=== PATIENT | female | born 1980 | race Caucasian/White ===

== ENCOUNTER 2018-01-10 09:40 | Emergency (ER) | payer BC ==
[2018-01-10 10:45] LABS: BASOPHIL % 0.2 % (0.0-0.4); Basophil (Absolute #) 0.02 (0-0.4); Eosinophil % 0.2 % (0.00-5.0); Eosinophil (Absolute #) 0.02 (0-0.5); Granulocyte Absolute (ANC) 8.14 (1.4-6.9); Granulocytes % 76.7 % (36.0-66.0); Hematocrit 39.2 % (35-47); Hemoglobin 13.7 gm/dl (12.0-16.0); Lymphocyte (Absolute #) 1.64 (1.0-4.6); Lymphocytes % 15.5 % (24.0-44.0); Mean Cell Volume 92.9 fl (78-100); Mean Corpuscular Hemoglobin 32.5 pg (26-32); Mean Corpuscular Hgb Concent. 34.9 g/dl (32-36); Monocyte (Absolute #) 0.79 (0.0-1.3); Monocytes % 7.4 % (0.0-12.0); Platelet Count 239 K/mm3 (150-450); Red Blood Count 4.22 M/mm3 (4.1-5.4); Red Cell Distribution Width 13.5 % (11.5-14.0); White Blood Count 10.6 K/mm3 (4.0-10.5)
[2018-01-10 10:50] LABS: Appearance CLEAR (CLEAR); Bilirubin NEGATIVE (NEGATIVE); Blood 250 Ery/ul (0-5); Glucose NEGATIVE (NEGATIVE); Ketones NEGATIVE (NEGATIVE); Leukocyte Esterase 1+ (NEGATIVE); Nitrite NEGATIVE (NEGATIVE); Protein,Urine Dip NEGATIVE (Negative); Urobilinogen NORMAL mg/dL (0-1)
[2018-01-10 10:53] LABS: Bacteria FEW /HPF (NEGATIVE); Epithelial Cells FEW /HPF (FEW); WBC 0-2 /HPF (0-5)
[2018-01-10 11:07] LABS: Amphetamine,Urine NEGATIVE (NEGATIVE); Barbiturate,Urine NEGATIVE (NEGATIVE); Benzodiazepine,Urine NEGATIVE (NEGATIVE); Cocaine,Urine NEGATIVE (NEGATIVE); Methadone,Urine NEGATIVE (NEGATIVE); Opiate,Urine NEGATIVE (NEGATIVE); THC,Urine NEGATIVE (NEGATIVE)
--- NOTE | 2018-01-10 11:33 | ERPHSYRPT ---
- History of Present Illness Time Seen by Provider: 01/10/18 10:20 Source: patient Patient Subjective Stated Complaint: STATES HAS LLQ ABD PAIN FOR SEVERAL MONTHS. IS NOW 8-9 WEEKS . DENYING ANY VAGINAL BLEEDING OR DISCHARGE AT THIS TIME. PATIENT ALSO C/O RECENT UTI AND WAS ON KEFLEX TWO TIMES WITHOUT RELIEF. Triage Nursing Assessment: AMBULATED TO ROOM PER SELF. SKIN W/D, COLOR NORMAL, RESP EASY. PATIENT HAS RAMBLING SPEECH. ABD SOFT. Physician History: CC: bladder infection HX: 37 y/o patient who has seen Dr Hess from OB. She is with prior sono in office showing IUP with [facility] 08-12-18. She is now 9+3 weeks . She states she has been seen in ER and had UTI and was treated with keflex. She subsequently had labs thru OB doctor and states they were abnl. The blood WBC was 10.0 and the urine showed 0-5 WBC and 11-30 RBC. She brought copies of these labs. She has no vaginal bleeding and no vaginal discharge. Has had left pain for months but sono showed IUP in office. She has some off and on green cough. Fever off and on for 3 weeks. ALL: Doxy and phenergan. Meds: None Surg: Teeth, nose, liver bx for hep B but showed no hep B. Social: Smoker. Works as [employer] in [place]. Allergies/Adverse Reactions: doxycycline Adverse Reaction (Verified 01/10/18 10:27) promethazine [From Phenergan] Adverse Reaction (Verified 01/10/18 10:27) Home Medications: Vits W-Ca,Fe,FA(<1Mg) [] 1 ea PO DAILY 01/10/18 [History] Hx Tetanus, Diphtheria Vaccination/Date Given: No Hx Influenza Vaccination/Date Given: No Hx Pneumococcal Vaccination/Date Given: No - Review of Systems Constitutional: Fever, Chills Eyes: No Symptoms Respiratory: Cough Abdominal/Gastrointestinal: Abdominal Pain, No Nausea, No Vomiting, No Diarrhea Genitourinary Symptoms: Hematuria, , No Vaginal Bleeding, No Vaginal Discharge Musculoskeletal: No Back Pain Skin: No Rash Neurological: No Headache All Other Systems: Reviewed and Negative - Past Medical History Pertinent Past Medical History: Yes Other Medical History: LIVER BIOPSY - Past Surgical History Past Surgical History: Yes Other Surgical History: NASAL SURGERY - Social History Smoking Status: Current every day smoker How long have you smoked: 15 Exposure to second hand smoke: Yes Drug Use: none Patient Lives Alone: No - Female History Hx Last Menstrual Period: 11/11/17 Hx Now: Yes (8-9 WEEKS) - Nursing Vital Signs Nursing Vital Signs: Initial Vital Signs Temperature 97.5 F 01/10/18 09:55 Pulse Rate 91 H 01/10/18 09:55 Respiratory Rate 18 01/10/18 09:55 Blood Pressure 136/94 01/10/18 09:55 O2 Sat by Pulse Oximetry 100 01/10/18 09:55 Pain Scale Pain Intensity 4 - Physical Exam General Appearance: alert Eye Exam: PERRL/EOMI Ears, Nose, Throat Exam: normal ENT inspection, moist mucous membranes Neck Exam: normal inspection, non-tender, supple Respiratory Exam: normal breath sounds, lungs clear Cardiovascular Exam: regular rate/rhythm Gastrointestinal/Abdomen Exam: soft, No tenderness, No distention Back Exam: normal inspection, normal range of motion Extremity Exam: normal inspection, normal range of motion Neurologic Exam: alert, oriented x 3, sensation nml, No motor deficits Skin Exam: warm, dry, No rash SpO2 Interpretation: normal SpO2: 100 Oxygen Delivery: Room Air - Course Nursing assessment & vital signs reviewed: Yes Ordered Tests: Active Orders 24 hr Category Date Time Status Clean Catch Urine Specimen STAT Care 01/10/18 10:34 Active CBC W DIFF Stat Lab 01/10/18 10:46 Completed HCG, Quantitative (Inhouse) Stat Lab 01/10/18 10:46 Received UA W/ MICROSCOPIC Stat Lab 01/10/18 10:46 Completed Urine Triage Profile Stat Lab 01/10/18 10:46 Completed Lab/Rad Data: Laboratory Result Diagrams 01/10/18 10:46 Laboratory Results 01/10/18 01/10/18 01/10/18 Range/Units 10:46 10:46 10:46 WBC 10.6 H (4.0-10.5) K/mm3 RBC 4.22 (4.1-5.4) M/mm3 Hgb 13.7 (12.0-16.0) gm/dl Hct 39.2 (35-47) % MCV 92.9 (78-100) fl MCH 32.5 H (26-32) pg MCHC 34.9 (32-36) g/dl RDW 13.5 (11.5-14.0) % Plt Count 239 (150-450) K/mm3 MPV 10.0 H (6-9.5) fl Gran % 76.7 H (36.0-66.0) % Lymphocytes % 15.5 L (24.0-44.0) % Monocytes % 7.4 (0.0-12.0) % Eosinophils % 0.2 (0.00-5.0) % Basophils % 0.2 (0.0-0.4) % Basophils # 0.02 (0-0.4) Ur Collection Type CLEAN CATCH Urine Color YELLOW (YELLOW) Urine Appearance CLEAR (CLEAR) Urine pH 6.0 (5-6) Ur Specific [place] 1.010 (1.005-1.025) Urine Protein NEGATIVE (Negative) Urine Ketones NEGATIVE (NEGATIVE) Urine Blood 250 (0-5) Ed/ul Urine Nitrite NEGATIVE (NEGATIVE) Urine Bilirubin NEGATIVE (NEGATIVE) Urine Urobilinogen NORMAL (0-1) mg/dL Ur Leukocyte Esterase 1+ (NEGATIVE) Urine Microscopic RBC 2-5 (0-2) /HPF Urine Microscopic WBC 0-2 (0-5) /HPF Ur Epithelial Cells FEW (FEW) /HPF Urine Bacteria FEW (NEGATIVE) /HPF Urine Culture Reflexed NO (NO) Urine Glucose NEGATIVE (NEGATIVE) mg/dL Urine Opiates Level NEGATIVE (NEGATIVE) Ur Methadone NEGATIVE (NEGATIVE) Urine Barbiturates NEGATIVE (NEGATIVE) Urine Amphetamine NEGATIVE (NEGATIVE) U Benzodiazepine Level NEGATIVE (NEGATIVE) Urine Cocaine NEGATIVE (NEGATIVE) Urine Marijuana (THC) NEGATIVE (NEGATIVE) Specimen Received 01-10-18 1030 - Progress Progress Note: 01/10/18 11:34 She is considering changing OB doctor. Advised she follow up. Urine will be sent for culture. Abtx not indicated at present although she disagrees. Counseled pt/family regarding: lab results, diagnosis, need for follow-up - Departure Time of Disposition: 11:35 Departure Disposition: Home Clinical Impression: Hematuria, Early stage of Condition: Stable Critical Care Time: No Referrals: DENAE HESS [NON-STAFF PHY W/O PRIVILEGES] - Instructions: Blood in the Urine (Hematuria), Adult (DC), Medications and Additional Instructions: Your urine is sent for culture. You need to follow up this week with Dr Hess or OB doctor of your choice.
[2018-01-10 11:49] VITALS: BP 126/82; PULSE 86; O2SAT 99
[2018-01-10 16:26] LABS: PCP,Urine NEGATIVE (NEGATIVE)
== END 2018-01-10 12:00 | disposition home or self-care (01) ==
LOC: ED 09:40
DX: O26.891 Other specified pregnancy related conditions, first trimester (principal); Z3A.09 9 weeks gestation of pregnancy; R31.9 Hematuria, unspecified
CPT/HCPCS: 36000; 36415; 80307; 81000; 84702; 85025; 99283